=== PATIENT | male | born 1990 | race Caucasian/White ===

== ENCOUNTER 2017-05-19 13:31 | Emergency (ER) | payer OTHER ==
[2017-05-19 13:37] VITALS: BP 140/86; PULSE 92; RESP 20; TEMP 98.3
[2017-05-19] MEDS ORDERED: methylPREDNISolone SOD SUCCI 125 MG/2 ML VIAL IM ONE (13:45)
[2017-05-19] MEDS ORDERED: diphenhydrAMINE 50 MG/ML 1 ML VIAL IM STA (13:45)
[2017-05-19] MEDS ORDERED: FAMOTIDINE 20 MG TAB PO STA (13:45)
[2017-05-19] MEDS ORDERED: CLINDAMYCIN 150 MG CAP PO STA (13:45)
[2017-05-19] MEDS ORDERED: ACET/COD 300 MG/30 MG STARTER PACK 6 TAB BTL PO STA (13:46)
--- NOTE | 2017-05-19 13:49 | ED ---
Skin/Abscess/FB HPI - General Chief complaint: Skin/Abscess/Foreign Body Stated complaint: Bee Sting/Dental Pain Time Seen by Provider: 05/19/17 13:39 Source: patient, RN notes reviewed, old records reviewed Mode of arrival: ambulatory Limitations: no limitations - History of Present Illness Initial comments: Is a 27-year-old male presenting to the emergency department with chief complaint of ALLERGIC reaction to bee sting. Patient states that he got stung on the top of his ear. He reports that he broke out in hives. Patient states he has no shortness of breath. No tongue swelling. Patient states he does not have any medication at this point. Patient also reports that he has a left sided upper dental infection. He was started on Keflex yesterday. He reports that he has been taking the antibiotic for one day however he is noticed some increased swelling over the left side of his face. Patient denies any specific fever or chills. Denies any chest pain or shortness of breath, nausea or vomiting. Patient relates that he has had some previous dental infections. - Related Data Previous Rx's Medication Instructions Recorded Clindamycin [Cleocin] 450 mg PO TID 7 Days 05/19/17 Famotidine [Pepcid] 20 mg PO BID #6 tablet 05/19/17 diphenhydrAMINE [Benadryl] 25 mg PO QID PRN #20 capsule 05/19/17 predniSONE 20 mg PO BID #6 tab 05/19/17 Allergies Allergy/AdvReac Type Severity Reaction Status Date / Time No Known Allergies Allergy Verified 05/19/17 13:38 Review of Systems ROS Statement: Those systems with pertinent positive or pertinent negative responses have been documented in the HPI. ROS Other: All systems not noted in ROS Statement are negative. Past Medical History Past Medical History: No Reported History History of Any Multi-Drug Resistant Organisms: None Reported Past Surgical History: No Surgical Hx Reported Past Psychological History: No Psychological Hx Reported Smoking Status: Current every day smoker Past Alcohol Use History: Occasional Past Drug Use History: None Reported General Exam - General Exam Comments Initial Comments: 27-year-old male. No acute distress. Limitations: no limitations General appearance: alert, in no apparent distress Head exam: Present: atraumatic, normocephalic, normal inspection Eye exam: Present: normal appearance, PERRL, EOMI. Absent: scleral icterus, conjunctival injection, periorbital swelling ENT exam: Present: normal exam, mucous membranes moist, TM's normal bilaterally. Absent: normal oropharynx (left upper 1st molar is broken, infection. ) Neck exam: Present: normal inspection. Absent: tenderness, meningismus, lymphadenopathy Respiratory exam: Present: normal lung sounds bilaterally. Absent: respiratory distress, wheezes, rales, rhonchi, stridor Cardiovascular Exam: Present: regular rate, normal rhythm, normal heart sounds. Absent: systolic murmur, diastolic murmur, rubs, gallop, clicks GI/Abdominal exam: Present: soft, normal bowel sounds. Absent: distended, tenderness, guarding, rebound, rigid Extremities exam: Present: normal inspection, full ROM, normal capillary refill. Absent: tenderness, pedal edema, joint swelling, calf tenderness Back exam: Present: normal inspection Neurological exam: Present: alert, oriented X3, CN II-XII intact Psychiatric exam: Present: normal affect, normal mood Skin exam: Present: warm, dry, intact, normal color, erythema (Patient has erythematous chest and neck. Evidence of urticaria over the chest neck and face.). Absent: rash Course Vital Signs 05/19/17 13:35 Temperature 98.3 F Pulse Rate 92 Respiratory 20 Rate Blood Pressure 140/86 O2 Sat by Pulse 99 Oximetry Medical Decision Making - Medical Decision Making Is a 27-year-old male presenting to the emergency department with chief complaint of ALLERGIC reaction to bee sting. Patient states that he got stung on the top of his ear. He reports that he broke out in hives. Patient states he has no shortness of breath. No tongue swelling. Patient also complains of left-sided dental infection. Started on Keflex yesterday. He does have some Swelling over the face. Patient also is erythematous with hives. Patient is given IM Solu-Medrol and Benadryl. Given by mouth Pepcid. Patient also lists be started on clindamycin for a dental infection. Discussed that he needs to follow-up with dental clinic. Patient will be written for prednisone for the next few days as well as Benadryl and Pepcid. Patient understands and she will comply. Parameters were discussed. Disposition Clinical Impression: Dental infection, Allergic reaction to bee sting Disposition: HOME SELF-CARE Condition: Good Instructions: General Allergic Reaction (ED), Dental Abscess (ED) Additional Instructions: [facility] [address] [place] [address] [phone] (existing clients only) For new clients: [phone] 1st consult: $50 (includes Xrays) Usually 30% less then private dentist for visits after. [employer] Have to pay $50 for Xrays anmd rest is covered. [phone] Patient advised to take new antibiotic. Follow-up with your primary care provider. Patient also needs to take prednisone, Benadryl and Pepcid for the next few days. Return to emergency department if any alarming signs or symptoms occur. Prescriptions: Clindamycin [Cleocin] 450 mg PO TID 7 Days diphenhydrAMINE [Benadryl] 25 mg PO QID PRN #20 capsule PRN Reason: Itching Famotidine [Pepcid] 20 mg PO BID #6 tablet predniSONE 20 mg PO BID #6 tab Referrals: None,Stated [Primary Care Provider] - 1-2 days Karen Loja MD [STAFF PHYSICIAN] - 1-2 days Time of Disposition: 14:09
== END 2017-05-19 14:23 | disposition home or self-care (01) ==
LOC: EC 13:31
DX: K04.7 Periapical abscess without sinus (principal); T63.441A Toxic effect of venom of bees, accidental (unintentional), initial encounter; F17.200 Nicotine dependence, unspecified, uncomplicated
CPT/HCPCS: 99283; 96372 ×2; J1200; J2930

== ENCOUNTER 2019-08-14 10:26 | Emergency (ER) | payer OTHER ==
[2019-08-14 10:32] VITALS: BP 144/79; PULSE 97; RESP 18; TEMP 97.8
--- NOTE | 2019-08-14 10:41 | ED ---
Fever HPI - General Chief Complaint: Fever Stated Complaint: Head cold Time Seen by Provider: 08/14/19 10:33 Source: patient, RN notes reviewed Mode of arrival: ambulatory Limitations: no limitations - History of Present Illness Initial Comments: 29-year-old male presents emergency Department chief complaint of fever cough congestion sinus pressure last 1 week. Patient states he's had no relief with [id number] medications. Patient has benign past medical history NO KNOWN DRUG ALLERGIES. Patient states he has facial pressure mild headache no neck pain no neck stiffness. Patient states his cough is mildly productive with phlegm in the morning no shortness breath no difficulty swallowing. - Related Data Previous Rx's Medication Instructions Recorded Clindamycin [Cleocin] 450 mg PO TID 7 Days capsule 05/19/17 Famotidine [Pepcid] 20 mg PO BID #6 tablet 05/19/17 diphenhydrAMINE [Benadryl] 25 mg PO QID PRN #20 capsule 05/19/17 predniSONE 20 mg PO BID #6 tab 05/19/17 Amoxicillin/Potassium Clav 1 tab PO Q12HR #20 tab 08/14/19 [Augmentin 875-125 Tablet] Allergies Allergy/AdvReac Type Severity Reaction Status Date / Time No Known Allergies Allergy Verified 05/19/17 13:38 Review of Systems ROS Statement: Those systems with pertinent positive or pertinent negative responses have been documented in the HPI. ROS Other: All systems not noted in ROS Statement are negative. Past Medical History Past Medical History: No Reported History History of Any Multi-Drug Resistant Organisms: None Reported Past Surgical History: No Surgical Hx Reported Past Psychological History: No Psychological Hx Reported Smoking Status: Current every day smoker Past Alcohol Use History: Occasional Past Drug Use History: None Reported General Exam Limitations: no limitations General appearance: alert, in no apparent distress Head exam: Present: atraumatic, normocephalic, normal inspection Eye exam: Present: normal appearance, PERRL, EOMI. Absent: scleral icterus, conjunctival injection, periorbital swelling ENT exam: Present: mucous membranes moist, TM's normal bilaterally. Absent: normal exam (Mild maxillary tenderness), normal oropharynx (Postnasal drainage) Neck exam: Present: normal inspection, full ROM. Absent: tenderness, meningismus, lymphadenopathy Respiratory exam: Present: normal lung sounds bilaterally. Absent: respiratory distress, wheezes, rales, rhonchi, stridor Cardiovascular Exam: Present: regular rate, normal rhythm, normal heart sounds. Absent: systolic murmur, diastolic murmur, rubs, gallop, clicks GI/Abdominal exam: Present: soft, normal bowel sounds. Absent: distended, tenderness, guarding, rebound, rigid Course Vital Signs 08/14/19 10:29 Temperature 97.8 F Pulse Rate 97 Respiratory 18 Rate Blood Pressure 144/79 O2 Sat by Pulse 97 Oximetry Medical Decision Making - Medical Decision Making Patient was treated for acute sinusitis. Patient advised take [id number] decongestants. Patient provided a work note. Return parameters were discussed.I counseled the patient for smoking cessation for greater than 3 minutes Disposition Clinical Impression: Sinusitis Disposition: HOME SELF-CARE Condition: Stable Instructions (If sedation given, give patient instructions): Sinusitis (ED) Additional Instructions: Please return to the Emergency Department if symptoms worsen or any other concerns. Prescriptions: Amoxicillin/Potassium Clav [Augmentin 875-125 Tablet] 1 tab PO Q12HR #20 tab Is patient prescribed a controlled substance at d/c from ED?: No Referrals: None,Stated [Primary Care Provider] - 1-2 days Time of Disposition: 10:41
== END 2019-08-14 11:01 | disposition home or self-care (01) ==
LOC: EC 10:26
DX: J32.9 Chronic sinusitis, unspecified (principal); F17.200 Nicotine dependence, unspecified, uncomplicated; Z71.6 Tobacco abuse counseling
CPT/HCPCS: 99282

== ENCOUNTER 2020-07-10 10:43 | Emergency (ER) | payer OTHER ==
[2020-07-10 10:48] VITALS: BP 130/59; PULSE 90; RESP 18; TEMP 97.9
[2020-07-10] MEDS ORDERED: FLUORESCEIN STRIPS 1 MG STRIP RIGHT EYE ONE (11:03)
[2020-07-10] MEDS ORDERED: PROPARACAINE 0.5% OPHTH DROPS 15 ML BTL RIGHT EYE STA (11:03)
--- NOTE | 2020-07-10 11:30 | ED ---
Eye Problem HPI - General Chief complaint: Eye Problems Stated complaint: IHS-FB in eye Time Seen by Provider: 07/10/20 10:50 Source: patient Mode of arrival: ambulatory Limitations: no limitations - History of Present Illness Initial comments: Patient is a 30-year-old male presenting to the emergency Department with complaints of a foreign body in his right eye. Patient states he felt some irritation about 2 weeks ago but never saw anything in his eye. Patient states 2 days ago he looked again and saw a black spot on his eye, and having increase in redness and irritation. He thinks it could be a piece of metal. He states tetanus vaccine is up-to-date. He denies any blurry vision except for some mild changes when his eye fan more. He denies any headaches. Denies any fevers. There are no further complaints at this time. - Related Data Previous Rx's Medication Instructions Recorded Clindamycin [Cleocin] 450 mg PO TID 7 Days capsule 05/19/17 Famotidine [Pepcid] 20 mg PO BID #6 tablet 05/19/17 diphenhydrAMINE [Benadryl] 25 mg PO QID PRN #20 capsule 05/19/17 predniSONE [Deltasone] 20 mg PO BID #6 tab 05/19/17 Amoxicillin/Potassium Clav 1 tab PO Q12HR #20 tab 08/14/19 [Augmentin 875-125 Tablet] Erythromycin Ophth Oint [Romycin 1 applic RIGHT EYE QID 5 Days #1 07/10/20 Ophth Oint] tube Allergies Allergy/AdvReac Type Severity Reaction Status Date / Time No Known Allergies Allergy Verified 07/10/20 10:48 Review of Systems ROS Statement: Those systems with pertinent positive or pertinent negative responses have been documented in the HPI. ROS Other: All systems not noted in ROS Statement are negative. Past Medical History Past Medical History: No Reported History History of Any Multi-Drug Resistant Organisms: None Reported Past Surgical History: No Surgical Hx Reported Past Psychological History: No Psychological Hx Reported Smoking Status: Current every day smoker Past Alcohol Use History: Occasional Past Drug Use History: Marijuana General Exam - General Exam Comments Initial Comments: GENERAL: Patient is well-developed and well-nourished. Patient is nontoxic and in no acute distress. HEAD: Atraumatic, normocephalic. EYES: Pupils equal round and reactive to light, extraocular movements intact, sclera anicteric, left conjunctiva is normal. Eyelids were unremarkable. Right conjunctiva is injected, there is a small black foreign body present at the 9 o'clock position of the cornea. ENT: TMs normal, nares patent, oropharynx clear without exudates. Moist mucous membranes. NECK: Normal range of motion, supple without lymphadenopathy or JVD. LUNGS: Unlabored respirations. Breath sounds clear to auscultation bilaterally and equal. No wheezes rales or rhonchi. HEART: Regular rate and rhythm without murmurs, rubs or gallops. ABDOMEN: Soft, nontender, normoactive bowel sounds. No guarding, no rebound. No masses appreciated. : Deferred MUSCULOSKELETAL: Normal extremities with adequate strength and normal range of motion, no pitting or edema. No clubbing or cyanosis. NEUROLOGICAL: Patient is alert and oriented x 3. Normal speech, normal gait. PSYCH: Normal mood, normal affect. SKIN: Warm, Dry, normal turgor, no rashes or lesions noted. Limitations: no limitations Course Vital Signs 07/10/20 10:45 Temperature 97.9 F Pulse Rate 90 Respiratory 18 Rate Blood Pressure 130/59 O2 Sat by Pulse 99 Oximetry Procedures - Forgein Body Removal Eye Site: Right Location in eye(s): 9 o'clock position Anesthetic Used: Proparacaine Eye Exam Technique: Bagley Lamp, Fluorescein Foreign Body Suspected: Metal Forgein Body Removal Technique: Cotton Swab, Needle Remaining Debris: No Patient Tolerated: well Medical Decision Making - Medical Decision Making Patient is a 30-year-old male here with a foreign body at the 9 o'clock position of the right eye. I was able to remove this using a cotton swab as well as the end of a needle. Patient tolerate procedure well. I will start him on erythromycin ointment. If symptoms do not improve in the next few days, he needs follow-up with ophthalmology. Patient is agreement with this plan of care. He is stable for discharge. Return parameters were discussed with the patient and she verbalized understanding. Disposition Clinical Impression: Foreign body of right eye, Corneal abrasion, right Disposition: HOME SELF-CARE Condition: Stable Instructions (If sedation given, give patient instructions): Eye Foreign Body (ED) Additional Instructions: Please return to the Emergency Department if symptoms worsen or any other concerns. Use antibiotic ointment as prescribed. If symptoms persist without improvement, follow up with eye doctor. Prescriptions: Erythromycin Ophth Oint [Romycin Ophth Oint] 1 applic RIGHT EYE QID 5 Days #1 tube Is patient prescribed a controlled substance at d/c from ED?: No Referrals: None,Stated [Primary Care Provider] - 1-2 days Fletcher Yost MD [STAFF PHYSICIAN] - 1-2 days
== END 2020-07-10 11:54 | disposition home or self-care (01) ==
LOC: EC 10:43
DX: T15.01XA Foreign body in cornea, right eye, initial encounter (principal); F17.200 Nicotine dependence, unspecified, uncomplicated; Y92.69 Other specified industrial and construction area as the place of occurrence of the external cause; Y99.0 Civilian activity done for income or pay
CPT/HCPCS: 65220; 99283

== ENCOUNTER 2023-08-27 16:24 | Emergency (ER) | payer OTHER ==
[2023-08-27] MEDS ORDERED: ACET/COD 300 MG/30 MG STARTER PACK 6 TAB BTL PO STA (16:44)
--- NOTE | 2023-08-27 16:46 | ED ---
General Adult HPI - General Stated complaint: L Dental Pain Time Seen by Provider: 08/27/23 16:41 Source: patient, RN notes reviewed Mode of arrival: ambulatory Limitations: no limitations - History of Present Illness Initial comments: 33-year-old male presents emergency Department chief complaint dental pain. Patient states that this started over the last 3-4 days. Patient states he has a missing tooth left upper states the distal fragments that she's had increase in pain denies any difficulty swallowing no ocular pain no headache no neck pain. - Related Data Previous Rx's Medication Instructions Recorded Clindamycin [Cleocin] 450 mg PO TID 7 Days capsule 05/19/17 Famotidine [Pepcid] 20 mg PO BID #6 tablet 05/19/17 diphenhydrAMINE [Benadryl] 25 mg PO QID PRN #20 capsule 05/19/17 predniSONE [Deltasone] 20 mg PO BID #6 tab 05/19/17 Amoxicillin/Potassium Clav 1 tab PO Q12HR #20 tab 08/14/19 [Augmentin 875-125 Tablet] Erythromycin Ophth Oint [Romycin 1 applic RIGHT EYE QID 5 Days #1 07/10/20 Ophth Oint] tube Amoxic-Pot Clav 875-125Mg 1 tab PO Q12HR #20 tab 08/27/23 [Augmentin 875-125] Amoxic-Pot Clav 875-125Mg 1 tab PO Q12HR #20 tab 08/27/23 [Augmentin 875-125] Ibuprofen [Motrin] 600 mg PO Q8HR PRN #20 tab 08/27/23 Ibuprofen [Motrin] 600 mg PO Q8HR PRN #20 tab 08/27/23 Allergies Allergy/AdvReac Type Severity Reaction Status Date / Time No Known Allergies Allergy Verified 08/27/23 16:47 Review of Systems ROS Statement: Those systems with pertinent positive or pertinent negative responses have been documented in the HPI. ROS Other: All systems not noted in ROS Statement are negative. Past Medical History Past Medical History: No Reported History History of Any Multi-Drug Resistant Organisms: None Reported Past Surgical History: No Surgical Hx Reported Past Psychological History: No Psychological Hx Reported Smoking Status: Current every day smoker Past Alcohol Use History: Occasional Past Drug Use History: Marijuana General Exam General appearance: alert, in no apparent distress Head exam: Present: atraumatic, normocephalic, normal inspection Eye exam: Present: normal appearance, PERRL, EOMI. Absent: scleral icterus, conjunctival injection, periorbital swelling ENT exam: Present: mucous membranes moist, TM's normal bilaterally. Absent: normal exam, normal oropharynx (Missing upper molar left, no drainable abscess mild swelling, mild erythema) Neck exam: Present: normal inspection. Absent: tenderness, meningismus, lymphadenopathy Respiratory exam: Present: normal lung sounds bilaterally. Absent: respiratory distress, wheezes, rales, rhonchi, stridor Cardiovascular Exam: Present: regular rate, normal rhythm, normal heart sounds. Absent: systolic murmur, diastolic murmur, rubs, gallop, clicks Course Vital Signs 08/27/23 16:46 Temperature 98 F Pulse Rate 86 Respiratory 20 Rate Blood Pressure 122/78 O2 Sat by Pulse 99 Oximetry Medical Decision Making - Medical Decision Making Was pt. sent in by a medical professional or institution (, PA, PRESETTER OPERATOR, urgent care, hospital, or long term...) When possible be specific @ -No Did you speak to anyone other than the patient for history (EMS, parent, family, police, friend...)? What history was obtained from this source @ -No Did you review nursing and triage notes (agree or disagree)? Why? @ -I reviewed and agree with nursing and triage notes Were old charts reviewed (outside hosp., previous admission, EMS record, old EKG, old radiological studies, urgent care reports/EKG's, long term records)? Report findings @ -No old charts were reviewed Differential Diagnosis (chest pain, altered mental status, abdominal pain women, abdominal pain men, vaginal bleeding, weakness, fever, dyspnea, syncope, headache, dizziness, GI bleed, back pain, seizure, CVA, palpatations, mental health, musculoskeletal)? @ -Dental fracture, dental infection, dental Briana EKG interpreted by me (3pts min.). @ -[None X-ray interpreted by me (1pt min.). @ -None done CT interpreted by me (1pt min.). @ -None done U/S interpreted by me (1pt. min.). @ -None done What testing was considered but not performed or refused? (CT, X-rays, U/S, labs)? Why? @ -None What meds were considered but not given or refused? Why? @ -None Did you discuss the management of the patient with other professionals (professionals i.e. , PA, PRESETTER OPERATOR, lab, RT, psych nurse, criminal justice social worker, ceo and president, teacher, school resource officer, assistant case manager)? Give summary @ -No Was smoking cessation discussed for >3mins.? @ -No Was critical care preformed (if so, how long)? @ -No Were there social determinants of health that impacted care today? How? (Homelessness, low income, unemployed, alcoholism, drug addiction, transportation, low edu. Level, literacy, decrease access to med. care, long-term, rehab)? @ -No Was there de-escalation of care discussed even if they declined (Discuss DNR or withdrawal of care, Hospice)? DNR status @ -No What co-morbidities impacted this encounter? (DM, HTN, Smoking, COPD, CAD, Cancer, CVA, ARF, Chemo, Hep., AIDS, mental health diagnosis, sleep apnea, morbid obesity)? @ -None Was patient admitted / discharged? Hospital course, mention meds given and route, prescriptions, significant lab abnormalities, going to OR and other pertinent info. @ -[Discharge patient has underlying dental infection. Patient was started on Augmentin, was given a starter pack of Tylenol with codeine along with ibuprofen. Patient will follow-up with dentist return parameters were discussed. Undiagnosed new problem with uncertain prognosis? @ -No Drug Therapy requiring intensive monitoring for toxicity (Heparin, Nitro, Insulin, Cardizem)? @ -No Were any procedures done? @ -No Diagnosis/symptom? @ -[Dental infection, dental pain Acute, or Chronic, or Acute on Chronic? @ -Acute Uncomplicated (without systemic symptoms) or Complicated (systemic symptoms)? @ -Uncomplicated Side effects of treatment? @ -No Exacerbation, Progression, or Severe Exacerbation? @ -No Poses a threat to life or bodily function? How? (Chest pain, [place], [place], pneumonia, PE, COPD, DKA, ARF, appy, cholecystitis, CVA, Diverticulitis, Homicidal, Suicidal, threat to staff... and all critical care pts) @ -No Disposition Clinical Impression: Pain, dental, Dental infection Disposition: HOME SELF-CARE Condition: Stable Instructions (If sedation given, give patient instructions): Toothache (ED) Additional Instructions: Please return to the Emergency Department if symptoms worsen or any other concerns. Prescriptions: Amoxic-Pot Clav 875-125Mg [Augmentin 875-125] 1 tab PO Q12HR #20 tab Amoxic-Pot Clav 875-125Mg [Augmentin 875-125] 1 tab PO Q12HR #20 tab Ibuprofen [Motrin] 600 mg PO Q8HR PRN #20 tab PRN Reason: Pain Ibuprofen [Motrin] 600 mg PO Q8HR PRN #20 tab PRN Reason: Pain Is patient prescribed a controlled substance at d/c from ED?: No Referrals: None,Stated [Primary Care Provider] - 1-2 days Time of Disposition: 16:46
[2023-08-27 17:12] VITALS: BP 122/78; PULSE 86; RESP 20; TEMP 98
== END 2023-08-27 16:55 | disposition home or self-care (01) ==
LOC: EC 16:24
DX: K04.7 Periapical abscess without sinus (principal); F12.90 Cannabis use, unspecified, uncomplicated; F17.200 Nicotine dependence, unspecified, uncomplicated
CPT/HCPCS: 99282

== ENCOUNTER 2023-10-24 15:01 | Emergency (ER) | payer OTHER ==
[2023-10-24 15:12] VITALS: PULSE 86; RESP 16; TEMP 98.6
[2023-10-24 15:43] VITALS: BP 161/100
--- NOTE | 2023-10-24 16:18 | ED ---
URI HPI - General Chief Complaint: Upper Respiratory Infection Stated Complaint: Fever, Bodyaches Time Seen by Provider: 10/24/23 15:12 Source: patient, RN notes reviewed Mode of arrival: ambulatory Limitations: no limitations - History of Present Illness Initial Comments: This is a 33-year-old male who presents to the emergency department for fevers, body aches, and a sore throat. States that symptoms have been present for the last couple of days. Also reports a headache. He is unsure if this is an upper respiratory infection that he may have caught from his child or if his left upper tooth is becoming infected again. He does have pain to the tooth as well as a headache. He had some left ear pain that has since resolved. He was on antibiotics for this about a month ago. Denies any coughing, congestion, chest pain, or shortness of breath. MD Complaint: fever, sore throat - Related Data Previous Rx's Medication Instructions Recorded Clindamycin [Cleocin] 450 mg PO TID 7 Days capsule 05/19/17 Famotidine [Pepcid] 20 mg PO BID #6 tablet 05/19/17 diphenhydrAMINE [Benadryl] 25 mg PO QID PRN #20 capsule 05/19/17 predniSONE [Deltasone] 20 mg PO BID #6 tab 05/19/17 Amoxicillin/Potassium Clav 1 tab PO Q12HR #20 tab 08/14/19 [Augmentin 875-125 Tablet] Erythromycin Ophth Oint [Romycin 1 applic RIGHT EYE QID 5 Days #1 07/10/20 Ophth Oint] tube Amoxic-Pot Clav 875-125Mg 1 tab PO Q12HR #20 tab 08/27/23 [Augmentin 875-125] Amoxic-Pot Clav 875-125Mg 1 tab PO Q12HR #20 tab 08/27/23 [Augmentin 875-125] Ibuprofen [Motrin] 600 mg PO Q8HR PRN #20 tab 08/27/23 Ibuprofen [Motrin] 600 mg PO Q8HR PRN #20 tab 08/27/23 Amoxic-Pot Clav 875-125Mg 1 tab PO Q12HR 10 Days #20 tab 10/24/23 [Augmentin 875-125] Ketorolac [Toradol] 10 mg PO Q6HR PRN #15 tab 10/24/23 Allergies Allergy/AdvReac Type Severity Reaction Status Date / Time No Known Allergies Allergy Verified 10/24/23 15:19 Review of Systems ROS Statement: Those systems with pertinent positive or pertinent negative responses have been documented in the HPI. ROS Other: All systems not noted in ROS Statement are negative. Past Medical History Past Medical History: No Reported History History of Any Multi-Drug Resistant Organisms: None Reported Past Surgical History: No Surgical Hx Reported Past Psychological History: No Psychological Hx Reported Smoking Status: Never smoker Past Alcohol Use History: Occasional Past Drug Use History: Marijuana General Exam Limitations: no limitations General appearance: alert, in no apparent distress Head exam: Present: other (Mild fullness on the left side of the face near the left upper jaw. Multiple dental carries.) ENT exam: Present: TM's normal bilaterally, normal external ear exam, other (3+ tonsillar hypertrophy and posterior pharyngeal erythema. No exudates.) Respiratory exam: Present: normal lung sounds bilaterally. Absent: respiratory distress, wheezes, rales, rhonchi, stridor Cardiovascular Exam: Present: regular rate, normal rhythm, normal heart sounds. Absent: systolic murmur, diastolic murmur, rubs, gallop, clicks Neurological exam: Present: alert, oriented X3, CN II-XII intact Psychiatric exam: Present: normal affect, normal mood Skin exam: Present: warm, dry, intact, normal color. Absent: rash Course Vital Signs 10/24/23 15:07 Temperature 98.6 F Pulse Rate 86 Respiratory 16 Rate Blood Pressure 161/100 O2 Sat by Pulse 98 Oximetry Medical Decision Making - Medical Decision Making This is a 33-year-old male who presents to the emergency department for fevers, a sore throat, and headaches. Was pt. sent in by a medical professional or institution? @ -No Did you speak to anyone other than the patient for history? @ -No Did you review nursing and triage notes? @ -I disagree with the aspect of the cough. Patient denies any coughing. Were old charts reviewed? @ -No Differential Diagnosis? @ -Differential Fever: Pneumonia, viral URI, endocarditis, myocarditis, pericarditis, otitis, sinusitis, peritonsillar Abscess, retropharyngeal Abscess, epiglottitis, peritonitis, appendicitis, Sushma cystitis, diverticulitis, hepatitis, colitis, UTI, PID, TOA, pyelonephritis, prostatitis, epididymitis, meningitis, encephalitis, pulmonary embolism, CVA, thyroid storm, pancreatitis, adrenal crisis, cavernous sinus thrombosis, this is not meant to be an all-inclusive list. EKG interpreted by me (3pts min.)? @ -Not obtained X-rays interpreted by me (1pt min.)? @ -Not obtained CT interpreted by me (1pt min.)? @ -Not obtained U/S interpreted by me (1pt. min.)? @ -Not obtained What testing was considered but not performed? (CT, X-rays, U/S, labs)? Why? @ -None What meds were considered but not given? Why? @ -None Did you discuss the management of the patient with other professionals? @ -No Did you reconcile home meds? @ -No Was smoking cessation discussed for >3mins.? @ -I discussed smoking cessation for greater than 3 minutes. The risk of smoking were discussed with the patient including but not limited to risks of cancer, stroke, coronary artery disease and COPD. Also discussed with patient were multiple methods of quitting smoking. Lastly we discussed the financial cost of smoking. Was critical care preformed (if so, how long)? @ -No Were there social determinants of health that impacted care today? How? (Homelessness, low income, unemployed, alcoholism, drug addiction, transportation, low edu. Level, literacy, decrease access to med. care, custodial, rehab)? @ -No Was there de-escalation of care discussed even if they declined? (Discuss DNR or withdrawal of care, Hospice)? @ -No What co-morbidities impacted this encounter? (DM, HTN, Smoking, COPD, CAD, Cancer, CVA, Hep., AIDS, mental health diagnosis, sleep apnea, morbid obesity)? @ -Smoking Was patient admitted / discharged? @ -Discharged. COVID, influenza, and RSV testing negative. Rapid strep test negative. Discussed that this may be a viral URI, however he does have some swelling to the left side of the face and this may also be an early dental infection. Given the possibility of a dental infection, will treat the patient with antibiotics. Prescription for Augmentin and Toradol provided with dosing instructions reviewed. Otherwise advised follow up with his PCP and dentist. Undiagnosed new problem with uncertain prognosis? @ -None Drug Therapy requiring intensive monitoring for toxicity (Heparin, Nitro, Insulin, Cardizem)? @ -None Were any procedures done? @ -None Diagnosis/symptom? @ -Dental infection, URI Acute, or Chronic, or Acute on Chronic? @ -Acute Uncomplicated (without systemic symptoms) or Complicated (systemic symptoms)? @ -Uncomplicated Side effects of treatment? @ -None Exacerbation, Progression, or Severe Exacerbation] @ -Not applicable Poses a threat to life or bodily function? @ -No Return precautions reviewed in depth, the patient is instructed to return to the emergency department with any new, worsening, or concerning symptoms. Patient verbalized understanding. This case was discussed in detail with the attending ED physician, Dr. Eldridge. Presentation, findings, and treatment plan discussed in detail as well. - Lab Data Lab Results 10/24/23 10/24/23 Range/Units 15:18 16:01 Influenza Type A (PCR) Not Detected (Not Detectd) Influenza Type B (PCR) Not Detected (Not Detectd) RSV (PCR) Not Detected (Not Detectd) SARS-CoV-2 (PCR) Not Detected (Not Detectd) Group A Strep (PCR) NOT DETECTED (Not Detectd) Disposition Clinical Impression: Dental infection, URI (upper respiratory infection) Disposition: HOME SELF-CARE Instructions (If sedation given, give patient instructions): Dental Abscess (ED), Upper Respiratory Infection (ED), Toothache (ED) Additional Instructions: Return to the emergency department with any new, worsening, or concerning symptoms. Take the antibiotic as prescribed for 10 days. Take the Toradol with Tylenol as needed for pain relief. If you choose to take the Toradol, do not take any other anti-inflammatories such as ibuprofen, take one or the other. Follow up with your primary care provider in 1-2 days. Prescriptions: Amoxic-Pot Clav 875-125Mg [Augmentin 875-125] 1 tab PO Q12HR 10 Days #20 tab Ketorolac [Toradol] 10 mg PO Q6HR PRN #15 tab PRN Reason: Pain Is patient prescribed a controlled substance at d/c from ED?: No Referrals: None,Stated [Primary Care Provider] - 1-2 days Time of Disposition: 17:12
[2023-10-24] MEDS: ACET/COD 300 MG/30 MG STARTER PACK 6 TAB BTL PO STA (17:27)
[2023-10-24] MEDS: dexAMETHasone 2 MG TAB PO STA (17:28)
== END 2023-10-24 18:00 | disposition home or self-care (01) ==
LOC: EC 15:01
DX: J06.9 Acute upper respiratory infection, unspecified (principal); K04.7 Periapical abscess without sinus; K02.9 Dental caries, unspecified; F17.210 Nicotine dependence, cigarettes, uncomplicated; F12.90 Cannabis use, unspecified, uncomplicated; Z20.822 Contact with and (suspected) exposure to COVID-19
CPT/HCPCS: 87651; 87636; 99406; 99283; J8540